=== PATIENT | female | born 1960 | race Caucasian/White ===

== ENCOUNTER 2024-03-18 11:33 | Day surgery (SDC) | payer OTHER ==
[2024-03-16 13:58] VITALS: BMI 38.6
[2024-03-18] MEDS ORDERED: Midazolam HCl 2 mg/2 ml Vial ONE (12:41)
[2024-03-18] MEDS ORDERED: Lidocaine 1% PF 5 ML VIAL ONE (13:04)
[2024-03-18] MEDS ORDERED: Dexamethasone 4 mg/ml Vial ONE (13:04)
[2024-03-18] MEDS ORDERED: CEFAZOLIN 2 GM VIAL ONE (13:06)
[2024-03-18] MEDS ORDERED: PROPOFOL 20 ML ONE (13:07)
[2024-03-18] MEDS ORDERED: fentaNYL 50 mcg/mL 1 mL Vial ONE ×4 (13:07→16:05)
[2024-03-18] MEDS ORDERED: Clindamycin/D5W 900 mg/50 ml Premix Bag ONE (13:10)
[2024-03-18] MEDS ORDERED: Bupivacaine PF 0.5% 30 ML VIAL ONE (14:05)
[2024-03-18] MEDS ORDERED: Ketorolac Tromethamine 30 MG (1 mL) VIAL ONE (14:34)
[2024-03-18] MEDS ORDERED: HYDROcodone/Acetaminophen 5/325 mg Tablet ONE (16:36)
== END 2024-03-18 17:35 | disposition home or self-care (01) ==
LOC: CSHSDC 11:33
PROVIDERS: ATTEND Podiatrist Foot & Ankle Surgery
PROC: 0QSP04Z Reposition Left Metatarsal with Internal Fixation Device, Open Approach (ICD-10-PCS; principal; 2024-03-18)
DX: S92.411A Displaced fracture of proximal phalanx of right great toe, initial encounter for closed fracture (principal); S92.352A Displaced fracture of fifth metatarsal bone, left foot, initial encounter for closed fracture; M19.90 Unspecified osteoarthritis, unspecified site; J44.9 Chronic obstructive pulmonary disease, unspecified; F32.A Depression, unspecified; E11.9 Type 2 diabetes mellitus without complications; I10 Essential (primary) hypertension; E78.00 Pure hypercholesterolemia, unspecified; J45.909 Unspecified asthma, uncomplicated; W18.30XA Fall on same level, unspecified, initial encounter; Z79.899 Other long term (current) drug therapy; Z87.891 Personal history of nicotine dependence
CPT/HCPCS: 28485; 28490; 73620 ×2; J0665; J1100; J1885; J2250; J2704; J3010; J3490; C1713

== ENCOUNTER 2024-03-23 11:40 | Emergency (ER) | payer OTHER ==
[2024-03-23] MEDS ORDERED: Ketorolac Tromethamine 30 MG (1 mL) VIAL ONE (12:50)
[2024-03-23 13:12] LABS: #Basophils 0.08 10x3/uL (0.0-0.2); #Eosinphils 0.31 10x3/uL (0.0-0.5); #Monocytes 1.33 10x3/uL (0.0-1.1); #Neutrophils 10.69 10x3/uL (1.5-8.4); %Basophils 0.6 % (0.0-2.0); %Eosinophils 2.2 % (0.0-6.0); %Lymphocytes 12.3 % (18.0-47.0); %Monocytes 9.3 % (0.0-10.0); %Neutrophils 75.1 % (40.0-75.0); Hematocrit 32.1 % (34.9-44.5); Hemoglobin 10.2 g/dL (12.0-15.5); Mean Corpuscular HGB CONC 31.8 g/dL (32.0-36.0); Mean Corpuscular Hemoglobin 29.2 pg (27.0-33.0); Mean Platelet Volume 9.6 fL (7.4-10.4); Platelet Count 318 10x3/uL (150-450); RBC Distribution Width 13.6 % (11.5-14.5); Red Blood Cell (RBC) Count 3.49 10x6/uL (3.90-5.03); White Blood Cell (WBC) Count 14.2 10x3/uL (3.5-10.5)
[2024-03-23 13:24] LABS: ALT (SGPT) 72 U/L (8-55); AST (SGOT) 54 U/L (5-34); Albumin 3.6 g/dL (3.4-4.8); Alkaline Phosphatase 104 U/L (40-110); Anion Gap 13 mmol/L (10-20); BUN (Urea Nitrogen) 20 mg/dL (9.8-20.1); Bilirubin, Total 0.6 mg/dL (0.2-1.2); Calc. Creatinine Clearance 0 mL/min (70-130); Calcium 9.7 mg/dL (7.8-10.44); Carbon Dioxide 27 mmol/L (23-31); Chloride 99 mmol/L (98-107); Estimated GFR 49; Globulin 3.1 g/dL (2.4-3.5); Glucose 91 mg/dL (80-115); Lipase 22 U/L (8-78); Magnesium 1.8 mg/dL (1.6-2.6); Potassium 4.1 mmol/L (3.5-5.1); Protein, Total 6.7 g/dL (5.8-8.1); Sodium 135 mmol/L (136-145)
[2024-03-23 13:30] LABS: Troponin I 0.025 ng/mL (< 0.028)
[2024-03-23] MEDS ORDERED: methylPREDNISolone Sod Succ/PF 125 MG/2 ML VIAL ONE (15:14)
[2024-03-23 15:18] LABS: SARS-CoV-2 E Target Negative; SARS-CoV-2 N2 Target Negative; SARS-CoV-2 NAA Rapid Test Not Detected (NotDetected); SARS-CoV-2 RdRP gene Negative
[2024-03-23 15:47] LABS: Bilirubin Neg (Negative); Blood, Urine Negative (Negative); Clarity Clear (Clear); Glucose, Urine (Dipstick) Normal (Negative); Ketone, Urine Negative (Negative); Leukocyte Negative (Negative); Nitrite Negative (Negative); Protein, Urine (Dipstick) Negative (Neg-Trace); Urobilinogen Normal mg/dL (Less than 2)
[2024-03-23 16:14] LABS: Bacteria/HPF None Seen HPF (None Seen); CAUTI Indications for Culture Pelvic or flank pain; RBC/HPF None Seen HPF (0-3); Squamous Epithelial 0-3 HPF (0-3); WBC/HPF None Seen HPF (0-3)
[2024-03-23 16:16] LABS: Urine Culture Reflex No No
== END 2024-03-23 15:46 | disposition home or self-care (01) ==
LOC: CSHERS 11:40
DX: J18.9 Pneumonia, unspecified organism (principal); R91.1 Solitary pulmonary nodule; I10 Essential (primary) hypertension; E11.9 Type 2 diabetes mellitus without complications
CPT/HCPCS: 71045; 71275; 74177; 81001; 83690; 83735; 83880; 84484; 93005; 96374; 96375; 99285; J1885; J2919; U0002; 36415; 80053; 84443; 85025

== ENCOUNTER 2024-06-17 09:31 | Day surgery (SDC) | payer OTHER ==
[2024-06-16 09:55] VITALS: BMI 39.6
[2024-06-17] MEDS ORDERED: fentaNYL 50 mcg/mL 1 mL Vial ONE ×2 (10:22→12:17)
[2024-06-17] MEDS ORDERED: Ondansetron PF 4 MG/2 ML Vial ONE (10:22)
[2024-06-17] MEDS ORDERED: PROPOFOL 40 ML ONE (10:22)
[2024-06-17] MEDS ORDERED: Dexamethasone 4 mg/ml Vial ONE (10:22)
[2024-06-17] MEDS ORDERED: Lidocaine 2% PF 5 ML VIAL ONE (10:22)
[2024-06-17] MEDS ORDERED: Midazolam HCl 2 mg/2 ml Vial ONE (10:22)
[2024-06-17] MEDS ORDERED: CEFAZOLIN 2 GM VIAL ONE (10:32)
[2024-06-17] MEDS ORDERED: Sevoflurane 250 ML INH ANEST BOTTLE ONE (10:32)
[2024-06-17] MEDS ORDERED: Clindamycin/D5W 900 mg/50 ml Premix Bag ONE (10:53)
[2024-06-17] MEDS ORDERED: KETAMINE 100 MG/ML (5ML VIAL) ONE (10:55)
[2024-06-17] MEDS ORDERED: PHENYLEPHRINE-NS 100 MCG/ML 10 ML SYRINGE ONE (11:13)
[2024-06-17] MEDS ORDERED: ePHEDrine Sulfate 50 MG/10 ML VIAL ONE (11:22)
[2024-06-17] MEDS ORDERED: Bupivacaine PF 0.5% 30 ML VIAL ONE (11:43)
[2024-06-17] MEDS ORDERED: HYDROcodone/Acetaminophen 5/325 mg Tablet ONE (12:49)
== END 2024-06-17 13:25 | disposition home or self-care (01) ==
LOC: CSHSDC 09:31
PROVIDERS: ATTEND Podiatrist Foot & Ankle Surgery
PROC: 0SPN04Z Removal of Internal Fixation Device from Left Metatarsal-Phalangeal Joint, Open Approach (ICD-10-PCS; principal; 2024-06-17)
PROC: 0QBP0ZZ Excision of Left Metatarsal, Open Approach (ICD-10-PCS; 2024-06-17)
DX: T84.84XA Pain due to internal orthopedic prosthetic devices, implants and grafts, initial encounter (principal); I10 Essential (primary) hypertension; F41.9 Anxiety disorder, unspecified; F32.A Depression, unspecified; E10.9 Type 1 diabetes mellitus without complications; E78.5 Hyperlipidemia, unspecified; E66.9 Obesity, unspecified; R91.1 Solitary pulmonary nodule; Z90.710 Acquired absence of both cervix and uterus; Z68.39 Body mass index [BMI] 39.0-39.9, adult; Z87.891 Personal history of nicotine dependence; Z79.51 Long term (current) use of inhaled steroids; Z79.84 Long term (current) use of oral hypoglycemic drugs; Z79.899 Other long term (current) drug therapy; Y83.1 Surgical operation with implant of artificial internal device as the cause of abnormal reaction of the patient, or of later complication, without mention of misadventure at the time of the procedure
CPT/HCPCS: 20680; 28113; 73620; J0665; J1100; J2250; J2405; J2704; J3010; J3490

== ENCOUNTER 2024-07-15 17:28 | Emergency (ER) | payer OTHER ==
[2024-07-15 18:04] LABS: #Basophils 0.13 10x3/uL (0.0-0.2); #Eosinophils 0.24 10x3/uL (0.0-0.5); #Monocytes 0.69 10x3/uL (0.0-1.1); #Neutrophils 3.51 10x3/uL (1.5-8.4); %Eosinophils 3.6 % (0.0-6.0); %Lymphocytes 30.3 % (18.0-47.0); %Monocytes 10.5 % (0.0-10.0); %Neutrophils 53.3 % (40.0-75.0); Hematocrit 35.1 % (34.9-44.5); Hemoglobin 11.6 g/dL (12.0-15.5); Mean Corpuscular Hemoglobin 30.1 pg (27.0-33.0); Mean Corpuscular Volume 90.9 fL (81.6-98.3); Mean Platelet Volume 10.7 fL (7.4-10.4); Platelet Count 286 10x3/uL (150-450); RBC Distribution Width 13.3 % (11.5-14.5); Red Blood Cell (RBC) Count 3.86 10x6/uL (3.90-5.03); White Blood Cell (WBC) Count 6.6 10x3/uL (3.5-10.5)
[2024-07-15 18:13] LABS: ALT (SGPT) 23 U/L (8-55); AST (SGOT) 30 U/L (5-34); Alkaline Phosphatase 93 U/L (40-110); Anion Gap 12 mmol/L (10-20); BUN (Urea Nitrogen) 12 mg/dL (9.8-20.1); Bilirubin, Total 0.5 mg/dL (0.2-1.2); Calc. Creatinine Clearance 0 mL/min (70-130); Calcium 9.8 mg/dL (7.8-10.44); Carbon Dioxide 26 mmol/L (23-31); Chloride 105 mmol/L (98-107); Estimated GFR 54; Globulin 2.8 g/dL (2.4-3.5); Glucose 119 mg/dL (80-115); Potassium 4.2 mmol/L (3.5-5.1); Protein, Total 6.8 g/dL (5.8-8.1); Sodium 139 mmol/L (136-145)
[2024-07-15 18:16] LABS: Troponin I 0.012 ng/mL (< 0.028)
[2024-07-15] MEDS ORDERED: diphenhydrAMINE 50 MG/ML VIAL ONE (18:37)
[2024-07-15] MEDS ORDERED: Prochlorperazine 10 MG/2 ML VIAL ONE (18:38)
[2024-07-15] MEDS ORDERED: Ketorolac Tromethamine 30 MG (1 mL) VIAL ONE (18:38)
== END 2024-07-15 20:07 | disposition home or self-care (01) ==
LOC: CSHERS 17:28
DX: G43.909 Migraine, unspecified, not intractable, without status migrainosus (principal); I11.0 Hypertensive heart disease with heart failure; I50.9 Heart failure, unspecified; I25.10 Atherosclerotic heart disease of native coronary artery without angina pectoris; E11.9 Type 2 diabetes mellitus without complications; E78.5 Hyperlipidemia, unspecified; Z79.899 Other long term (current) drug therapy
CPT/HCPCS: 71045; 80053; 83880; 84484; 85025; 93005; 94760; J0780; J1200; J1885; 96374; 96375